=== PATIENT | male | born 1945 | race Caucasian/White ===

== ENCOUNTER 2023-08-25 14:55 | Emergency (ER) | payer OTHER, SELFPAY ==
[2023-08-25 14:57] VITALS: BP 103/80; PULSE 73; RESP 18; TEMP 36.7; O2SAT 98; BMI 25.6
--- NOTE | 2023-08-25 15:29 | EDS_ITS ---
HPI <JOAN Roldan Last Filed: 08/25/23 15:31> History of Present Illness Chief Complaint: Dental Narrative Narrative: 78-year-old male had a tooth extracted yesterday at [facility]. He removec the gauze about an hour later and had no issues until this morning when it started continuously slowly bleeding. He tried teabags and now has a piece of gauze stuck in there. He is on Eliquis for A-fib and held it for 2 doses prior to the procedure and restarted last night. PFSH <JOAN Roldan Last Filed: 08/25/23 15:31> PFSH Allergy/AdvReac Type Severity Reaction Status Date / Time No Known Allergies Allergy Verified 08/25/23 14:57 Social History Smoking Status: Never smoker ROS <JOAN Roldan - Last Filed: 08/25/23 15:31> ROS ED ROS Narrative Constitutional: Negative for fever, chills, malaise. GI: Negative for nausea, vomiting. Neuro: Negative for headache. Heme: Positive for easy bruising, bleeding. EXAM <JOAN Roldan Last Filed: 08/25/23 15:31> Physical Exam Narrative Exam Narrative: CONST: Patient sitting in no acute distress. EYES: Normal inspection. ENT: Right lower premolar extraction site has a small clot and slowly oozing bright red blood, no brisk bleeding. Airway patent. NECK: Normal inspection. RESP: No respiratory distress, CTAB. CVS: Regular rate and rhythm, no murmur, no gallop. SKIN: Color normal, no rash, warm, dry, intact. EXTREMITIES: Normal appearance, no pedal edema. NEURO: Oriented x4. PSYCH: Normal affect. Const Vital Signs: 08/25/23 14:57 Temperature 98.1 F Temperature Source Temporal Pulse Rate 73 Respiratory Rate 18 Blood Pressure 103/80 Blood Pressure Mean 87 Pulse Ox 98 Oxygen Delivery Method Room Air <Dr. Oli Mcclendon DO - Last Filed: 08/25/23 16:33> Physical Exam Const Vital Signs: 08/25/23 14:57 Temperature 98.1 F Temperature Source Temporal Pulse Rate 73 Respiratory Rate 18 Blood Pressure 103/80 Blood Pressure Mean 87 Pulse Ox 98 Oxygen Delivery Method Room Air MDM <Dr. Oli Mcclendon, - Last Filed: 08/25/23 16:33> [facility] Treatment and Re-Evaluation Narrative: I have personally performed a face to face assessment of the patient and have reviewed the JANE Note. I performed a substantive portion of the visit including all aspects of the following. My cortés findings include: History: Patient presents with bleeding from his dental extraction site that began today. Patient states he woke up and noticed the bleeding this morning. Patient states he had stopped his Eliquis for 2 days prior to the dental extraction. Patient states he restarted it last night. Patient denies any trauma or injury. Patient denies any fevers or chills. Exam: Vital signs are stable. Patient is afebrile. Patient is in no acute distress. Oral mucosa is pink and moist. There is bleeding from the right lower premolar area. There is no dry socket noted. There is no gingival edema or erythema noted. There is no sublingual edema or erythema. There is no evidence of Maximiliano's angina. Oropharynx is clear. Airway is patent. Neck is supple. Trachea is midline. There is no JVD. Heart was regular rate and rhythm. Lungs are clear and equal bilaterally. Abdomen is soft. Bowel sounds are normal. Cranial nerves II through XII are intact. There are no focal motor or sensory deficits noted. Medical Decision Making: Gelfoam was applied to the bleeding. Gauze was placed over top of this. Patient was instructed to apply pressure to this area. Patient was instructed to hold his Eliquis tonight. Patient was instructed to follow-up with his dentist in 3 to 5 days. Patient was instructed return if worse in any way. Patient understood and was agreeable with the plan. All questions were answered. Discharge Plan Triage Chief Complaint: Dental ED Midlevel Provider: Linn Lindsey ED Provider: Oli Mcclendon Dx/Rx/DC Orders Clinical Impression: Surgical wound hemorrhage after dental procedure Primary Care Provider: Jeremías Gould,Out of Referrals: Jeremías Gould,Out of [Primary Care Provider] - Activity Restrictions/Additional Instructions: The Surgicel foam shoould mold to the area and stay in. You can keep a piece of gauze over top to hold it and if needed. If it falls out you can replace it if there is still active bleeding. You can skip your Eliquis dose tonight. Disposition Disposition: Home, Self Care
[2023-08-25] MEDS: Gelatin Sponge Absorbable 50cm (1) 1 EACH TOPICAL (16:17)
== END 2023-08-25 16:46 | disposition home or self-care (01) ==
LOC: ED 16:30
PROVIDERS: Emergency Provider Emergency Medicine; Visit Provider Emergency Medicine
DX: K91.840 Postprocedural hemorrhage of a digestive system organ or structure following a digestive system procedure (principal); I48.91 Unspecified atrial fibrillation; Z79.01 Long term (current) use of anticoagulants
CPT/HCPCS: 99283